=== PATIENT | male | born 1990 | race Native Hawaiian/Other Pacific Islander ===

== ENCOUNTER 2021-05-14 20:23 | Emergency (ER) | payer BC ==
[~2021-05-14] VITALS: Ht 177.8 cm; Wt 145.2 kg
[2021-05-14 21:02] VITALS: BP 143/90; TEMP 98.7
== END 2021-05-14 21:05 | disposition home or self-care (01) ==
LOC: ED 20:23
DX: L02.416 Cutaneous abscess of left lower limb (principal); L03.116 Cellulitis of left lower limb
CPT/HCPCS: 99282